=== PATIENT | female | born 1990 | race Two or more races ===

== ENCOUNTER 2023-08-17 09:56 | Emergency (ER) | payer MEDICAID, OTHER ==
[~2023-08-17] VITALS: Ht 154.9 cm; Wt 59.9 kg
[2023-08-17 09:58] VITALS: BP 122/86; PULSE 87; O2SAT 100
[2023-08-17 10:45] VITALS: RESP 18; TEMP 98
== END 2023-08-17 10:48 | disposition home or self-care (01) ==
LOC: ER 09:57
DX: M25.561 Pain in right knee (principal); G43.909 Migraine, unspecified, not intractable, without status migrainosus
CPT/HCPCS: 73564; 99283

== ENCOUNTER 2024-11-18 16:42 | Outpatient (CLI) | payer MEDICAID ==
--- NOTE | 2024-11-18 21:33 | RADIOLOGY REPORT ---
CLINICAL HISTORY: PAIN IN RIGHT KNEE TECHNIQUE: MRI of the right knee was performed without gadolinium. COMPARISON: DI KNEE, COMP 4 VW MIN on DOS: 08/17/23 FINDINGS: The ACL, PCL, medial collateral ligament, and lateral ligamentous complex are intact. The medial and lateral menisci are intact. The patellar, quadriceps, and popliteus tendons are intact. The patella is appropriately located. There is no abnormal edema within the superolateral Hoffa's fat pad. There is no high grade cartilage defect or osteophyte formation. This trace physiologic fluid within the joint. No pack cyst is seen. The bone marrow signal is unremarkable. IMPRESSION: No significant MRI abnormality of the right knee.
== END 2024-11-18 23:59 | disposition home or self-care (01) ==
LOC: MRI02 16:42
PROVIDERS: ATTEND Nurse Practitioner Family
DX: M25.561 Pain in right knee (principal)
CPT/HCPCS: 73721